=== PATIENT | male | born 1995 | race Caucasian/White ===

== ENCOUNTER 2016-05-03 00:15 | Emergency (ER) | payer OTHER ==
[~2016-05-03] VITALS: Ht 185.4 cm; Wt 95.3 kg
[2016-05-03 00:42] VITALS: BP 132/69; PULSE 60; RESP 18; TEMP 97.8; O2SAT 99
[2016-05-03] MEDS ORDERED: NACL 0.9% 1,000 ML IV ONE (01:15)
[2016-05-03 01:46] LABS: BASOPHILS % (AUTO) 0.5 % (0.0-2.0); EOSINOPHILS # (AUTO) 0.1 K/uL (0.0-0.4); EOSINOPHILS % (AUTO) 1.3 % (0.0-4.0); HEMATOCRIT 48.6 % (36-54); HEMOGLOBIN 16.7 g/dL (14.0-18.0); LYMPHOCYTES % (AUTO) 26.8 % (20.5-51.5); MEAN CORPUSCULAR HEMOGLOBIN 31 pg (27-31); MEAN CORPUSCULAR HGB CONC 34 % (32-36); MEAN CORPUSCULAR VOLUME 89 fL (79.0-98.0); MONOCYTES # (AUTO) 0.8 K/uL (0.0-1.0); MONOCYTES % (AUTO) 10.1 % (1.7-9.3); NEUTROPHILS # (AUTO) 4.6 K/uL (1.8-7.7); NEUTROPHILS % (AUTO) 61.3 % (40.0-70.0); PLATELET COUNT (AUTO) 236 K/uL (130-430); RED BLOOD CELL COUNT(AUTO) 5.46 MIL/uL (4.2-6.2); WHITE BLOOD COUNT (AUTO) 7.5 K/uL (4.5-11.0)
[2016-05-03 02:02] LABS: BILIRUBIN,URINE NEGATIVE (NEGATIVE); BLOOD, URINE NEGATIVE (NEGATIVE); CLARITY/URINE CLEAR (CLEAR); COLOR,URINE YELLOW (YELLOW); GLUCOSE,URINE NEGATIVE (NEGATIVE); KETONES,URINE TRACE (NEGATIVE); LEUKOCYTE ESTERASE ,URINE NEGATIVE (NEGATIVE); NITRITE, URINE NEGATIVE (NEGATIVE); PROTEIN URINE NEGATIVE (NEGATIVE); UROBILINOGEN,URINE 0.2 (0.2-1.0)
[2016-05-03 02:05] LABS: CALCIUM 9.7 mg/dL (8.4-11.0)
[2016-05-03 02:06] LABS: ALBUMIN 4.9 g/dL (3.4-4.8); CREATININE 0.88 mg/dL (0.55-1.30); TOTAL BILIRUBIN 0.7 mg/dL (0.0-1.0); TOTAL PROTEIN, SERUM 8.4 g/dL (6.4-8.3)
[2016-05-03 03:34] VITALS: BP 132/76; PULSE 72; RESP 16; TEMP 97.8; O2SAT 100
== END 2016-05-03 03:34 | disposition home or self-care (01) ==
LOC: SED 00:15
DX: R11.2 Nausea with vomiting, unspecified (principal); R19.7 Diarrhea, unspecified; R10.9 Unspecified abdominal pain
CPT/HCPCS: 36415; 80053; 81003; 85025; 96360; 99284; J7030